=== PATIENT | female | born 1975 | race Caucasian/White ===

== ENCOUNTER → 2017-03-19 | Outpatient (REF) | payer MEDICARE | LOC: M SFHCWAGY 17:08 | DX: N76.0 Acute vaginitis (principal); B96.89 Other specified bacterial agents as the cause of diseases classified elsewhere | CPT/HCPCS: 87070 ==

== ENCOUNTER 2021-06-14 15:00 | Emergency (ER) | payer MEDICARE ==
[~2021-06-14] VITALS: Ht 165.1 cm; Wt 81.4 kg
[2021-06-14 15:00] VITALS: BP 156/88
[2021-06-14] MEDS ORDERED: DULO1CAP6 (15:27)
[2021-06-14] MEDS ORDERED: HYDR-4514 (15:27)
[2021-06-14] MEDS ORDERED: GABA-282 (15:27)
[2021-06-14 16:45] LABS: BASO # 0.1 10^3/uL (0.0-0.2); BASO % 0.4 % (0.0-1.0); EOS # 0.2 10^3/uL (0.0-0.5); EOS % 1.3 % (0.0-3.0); HEMATOCRIT 43.7 % (36.0-47.0); HEMOGLOBIN 14.7 g/dl (12.0-15.5); LYMPH # 3.1 10^3/uL (1.5-5.0); LYMPH % 21.1 % (24.0-44.0); MEAN CORPUSCULAR HGB CONC 33.6 g/dl (32.0-36.5); MONO # 0.7 10^3/uL (0.0-0.8); NEUTROPHILS # 10.6 10^3/uL (1.5-8.5); NEUTROPHILS % 71.7 % (36.0-66.0); PLATELET COUNT, AUTOMATED 267 10^3/uL (150-450); WHITE BLOOD COUNT 14.7 10^3/uL (4.0-10.0)
[2021-06-14 16:57] LABS: INR 1.04
[2021-06-14 17:09] LABS: ALBUMIN 3.6 GM/DL (3.2-5.2); ALT/SGPT 46 U/L (12-78); BILIRUBIN,DIRECT 0.1 MG/DL (0.0-0.2); BILIRUBIN,TOTAL 0.2 MG/DL (0.2-1.0); BLOOD UREA NITROGEN 5 MG/DL (7-18); CALCIUM LEVEL 9.3 MG/DL (8.5-10.1); CARBON DIOXIDE LEVEL 28 MEQ/L (21-32); CHLORIDE LEVEL 107 MEQ/L (98-107); CK-MB VALUE MASS 1.3 NG/ML (<3.6); CPK CREATINE PHOSPHOKINASE 187 U/L (26-192); CREATININE FOR GFR 0.63 MG/DL (0.55-1.30); GLOMERULAR FILTRATION RATE > 60.0 (>58); GLUCOSE, FASTING 109 MG/DL (70-100); LIPASE 70 U/L (73-393); POTASSIUM SERUM 3.7 MEQ/L (3.5-5.1); SODIUM LEVEL 141 MEQ/L (136-145); TOTAL PROTEIN 7.4 GM/DL (6.4-8.2)
[2021-06-14] MEDS ORDERED: ISOVUE-370 76% 100ML VIAL As Ordered ONE (19:28)
[2021-06-14] MEDS ORDERED: ASPIRIN 81 MG CHEW TABLET PO ONE (19:30)
[2021-06-14 20:18] LABS: CK-MB VALUE MASS 1.1 NG/ML (<3.6); MB/CK RELATIVE INDEX 0.55 (< OR =4)
== END 2021-06-14 21:49 | disposition home or self-care (01) ==
LOC: M ED 15:00
DX: R92.8 Other abnormal and inconclusive findings on diagnostic imaging of breast (principal); R07.9 Chest pain, unspecified; R06.02 Shortness of breath; K21.9 Gastro-esophageal reflux disease without esophagitis; F17.210 Nicotine dependence, cigarettes, uncomplicated
CPT/HCPCS: 36415; 71045; 71275; 80048; 80076; 82550; 82553; 83690; 84484; 85025; 85610; 93005; 93041; 94760; 99284; Q9967

== ENCOUNTER → 2021-06-18 | Outpatient (CLI) | payer MEDICARE ==
[~2021-06-18] MED LIST: DULO1CAP6; GABA-282; HYDR-4514
[2021-06-18 17:40] LABS: HEMATOCRIT 43.1 % (36.0-47.0); HEMOGLOBIN 14.2 g/dl (12.0-15.5); MEAN CORPUSCULAR HEMOGLOBIN 31.6 pg (27.0-33.0); MEAN CORPUSCULAR HGB CONC 32.9 g/dl (32.0-36.5); MEAN CORPUSCULAR VOLUME 95.8 fl (80.0-96.0); PLATELET COUNT, AUTOMATED 289 10^3/uL (150-450); WHITE BLOOD COUNT 11.3 10^3/uL (4.0-10.0)
[2021-06-18 17:56] LABS: HCG, SERUM QUALITATIVE NEGATIVE (NEGATIVE)
[2021-06-18 18:00] LABS: FREE T4 0.94 NG/DL (0.76-1.46)
== END ==
LOC: M PLALAB 15:54
PROVIDERS: ATTEND Advanced Practice Midwife
DX: N92.0 Excessive and frequent menstruation with regular cycle (principal); Z12.4 Encounter for screening for malignant neoplasm of cervix
CPT/HCPCS: 36415; 84439; 84443; 84703; 85027; 87624; G0123

== ENCOUNTER → 2021-07-29 | Outpatient (CLI) | payer MEDICARE | LOC: M WHC 13:01 | PROVIDERS: ATTEND Obstetrics & Gynecology | DX: R92.8 Other abnormal and inconclusive findings on diagnostic imaging of breast (principal) | CPT/HCPCS: 76642; 77066; G0279 ==

== ENCOUNTER 2024-02-08 17:22 | Emergency (ER) | payer MEDICARE ==
[~2024-02-08] VITALS: Ht 165.1 cm; Wt 82.9 kg
[~2024-02-08 17:22] MED LIST changes: +GABA-1172; -GABA-282
[2024-02-08 18:09] LABS: BASO % 0.4 % (0.0-1.0); EOS # 0.1 10^3/uL (0.0-0.5); EOS % 0.9 % (0.0-3.0); HEMATOCRIT 38.6 % (36.0-47.0); HEMOGLOBIN 13.3 g/dl (12.0-15.5); LYMPH # 1.8 10^3/uL (1.5-5.0); LYMPH % 16.7 % (24.0-44.0); MEAN CORPUSCULAR HGB CONC 34.5 g/dl (32.0-36.5); MEAN CORPUSCULAR VOLUME 92.8 fl (80.0-96.0); MONO # 0.7 10^3/uL (0.0-0.8); MONO % 6.3 % (2.0-8.0); NEUTROPHILS # 8.1 10^3/uL (1.5-8.5); NEUTROPHILS % 75.1 % (36.0-66.0); PLATELET COUNT, AUTOMATED 267 10^3/uL (150-450); RED BLOOD COUNT 4.16 10^6/uL (4.00-5.40); WHITE BLOOD COUNT 10.8 10^3/uL (4.0-10.0)
[2024-02-08 18:23] LABS: CK-MB VALUE MASS 2.2 NG/ML (<3.6)
[2024-02-08 18:24] LABS: BLOOD UREA NITROGEN 7 MG/DL (9-23); CALCIUM LEVEL 8.9 MG/DL (8.5-10.1); CARBON DIOXIDE LEVEL 25 MMOL/L (20-31); CHLORIDE LEVEL 103 MMOL/L (98-107); CK-MB VALUE MASS 2.2 NG/ML (<3.6); CPK CREATINE PHOSPHOKINASE 426 U/L (34-145); CREATININE FOR GFR 0.59 MG/DL (0.55-1.30); GLOMERULAR FILTRATION RATE > 60.0 (>58); GLUCOSE, FASTING 117 MG/DL (60-100); MB/CK RELATIVE INDEX 0.51 (< OR =4); POTASSIUM SERUM 4.1 MMOL/L (3.5-5.1); SODIUM LEVEL 134 MMOL/L (136-145)
[2024-02-08 18:25] LABS: CPK CREATINE PHOSPHOKINASE 422 U/L (34-145); MB/CK RELATIVE INDEX 0.52 (< OR =4)
[2024-02-08 19:55] VITALS: BP 124/66; TEMP 97.6; O2SAT 97
== END 2024-02-08 19:58 | disposition home or self-care (01) ==
LOC: M ED 17:22
DX: R07.9 Chest pain, unspecified (principal); T40.715A Adverse effect of cannabis, initial encounter; F17.200 Nicotine dependence, unspecified, uncomplicated; Z79.899 Other long term (current) drug therapy